=== PATIENT | female | born 1965 | race Caucasian/White ===

== ENCOUNTER 2018-02-16 08:03 | Outpatient (CLI) | payer OTHER ==
--- NOTE | 2018-02-17 12:24 | Mammography Report ---
Reason: SCREENING MAMMOGRAPHY, BILATERAL Procedure Date: 02/16/2018 Accession Number: [id number] / [id number] Procedure: KATE - Screening Mammo Dig Bilat CPT Code: FULL RESULT: EXAM: Screening Mammo Dig Bilat DATE: 02/16/2018 8:43 AM CLINICAL HISTORY: Routine screening TECHNIQUE: Bilateral CC and MLO views were obtained. COMPARISON: 07/20/2012 and 12/27/2007 FINDINGS: The breast tissue is heterogeneously dense. There has been no significant interval change. No suspicious masses, clustered microcalcifications, or regions of architectural distortion are identified. IMPRESSION: Negative. RECOMMENDATION: Routine annual screening unless otherwise clinically indicated. BIRADS CATEGORY 1: Negative STANDARD QUALIFYING STATEMENTS: 1. This examination was reviewed with the aid of Computer-Aided Detection (CAD). 2. A negative or benign imaging report should not delay biopsy if clinically suspicious findings are present. Consider surgical consultation if warrented. More than 5% of cancers are not identified by imaging. 3. Dense breasts may obscure an underlying neoplasm.
== END 2018-02-16 08:04 | disposition home or self-care (01) ==
LOC: DI 08:03
PROVIDERS: ATTEND Registered Nurse
DX: Z12.31 Encounter for screening mammogram for malignant neoplasm of breast (principal)
CPT/HCPCS: 77067

== ENCOUNTER 2018-02-16 08:44 | Outpatient (CLI) | payer OTHER ==
[2018-02-16 09:32] LABS: CHOLESTEROL 238 mg/dL; GLUCOSE 96 mg/dL (70-100); HDL CHOLESTEROL 79 mg/dL; LDL CHOLESTEROL,CALCULATED 147 mg/dL; LDL/HDL RATIO 1.9 (<4.4); VLDL CHOLESTEROL 12 mg/dL
[2018-02-16 09:37] LABS: HB2 TOTAL 14.4 g/dL; HEMOGLOBIN A1C 0.56 g/dL; HEMOGLOBIN A1C % 5.7 % (4.6-6.2)
== END 2018-02-16 08:45 | disposition home or self-care (01) ==
LOC: LAB 08:44
PROVIDERS: ATTEND Registered Nurse
DX: Z01.419 Encounter for gynecological examination (general) (routine) without abnormal findings (principal)
CPT/HCPCS: 36415; 80061; 82947; 83036; 83721; 84443

== ENCOUNTER 2018-05-23 08:43 | Day surgery (SDC) | payer OTHER ==
[2018-05-23] MEDS ORDERED: LACTATED RINGERS 1,000 ML IV ONE (09:05)
[2018-05-23] MEDS ORDERED: fentaNYL 250 MCG/5 ML VIAL IVP ONE (09:10)
[2018-05-23 10:16] VITALS: BP 103/68
== END 2018-05-23 08:44 | disposition home or self-care (01) ==
LOC: SDS 08:43
PROVIDERS: ATTEND Surgery
PROC: 0DJD8ZZ Inspection of Lower Intestinal Tract, Via Natural or Artificial Opening Endoscopic (ICD-10-PCS; principal; 2018-05-23 09:45)
DX: Z86.010 Personal history of colon polyps (principal); K64.8 Other hemorrhoids
CPT/HCPCS: 45378; J3010; J7120

== ENCOUNTER 2019-11-27 18:41 | Outpatient (CLI) | payer BC | END 2019-11-27 18:42 | disposition critical access hospital (66) | LOC: EMS 18:41 | PROVIDERS: ATTEND Surgery | DX: M54.5 Low back pain (principal); X58.XXXA Exposure to other specified factors, initial encounter; Y93.17 Activity, water skiing and wake boarding; Y92.832 Beach as the place of occurrence of the external cause | CPT/HCPCS: A0425; A0429 ==

== ENCOUNTER 2019-11-27 19:15 | Emergency (ER) | payer BC, OTHER ==
[2019-11-27] MEDS ORDERED: KETOROLAC 30 MG/ML VIAL IVP STA (19:22)
[2019-11-27] MEDS ORDERED: LORazepam 2 MG/ML VIAL IVP STA (19:22)
--- NOTE | 2019-11-27 19:24 | ED Physician Documentation ---
PD HPI BACK PAIN - Stated complaint Stated Complaint: LOW BACK INJURY - Chief complaint Chief Complaint: Back Pain - History obtained from History obtained from: Patient - Additional information Additional information: Otherwise healthy 54-year-old woman was waterskiing today, the but was just starting to pull her up and she developed severe pain in the low back. There was no specific trauma though. Pain is severe with motion, moderate at rest. It is nonradiating. Denies weakness, numbness, tingling, saddle anesthesia, fevers. No history of back issues. Review of Systems Ten Systems: 10 systems reviewed and negative Constitutional: reports: Reviewed and negative Nose: reports: Reviewed and negative Throat: reports: Reviewed and negative Cardiac: reports: Reviewed and negative Respiratory: reports: Reviewed and negative PD PAST MEDICAL HISTORY - Past Medical History Cardiovascular: None Respiratory: None Endocrine/Autoimmune: None GI: None : None HEENT: Chronic vision loss Psych: None Musculoskeletal: None Derm: None - Present Medications Home Medications: Ambulatory Orders Medication Instructions Recorded Confirmed Vit B2/Niacin/B6/B12/Dexpanth [B 1 DAILY 05/23/18 Complex Sublingual Liquid] Cyclobenzaprine [Flexeril] 10 mg PO TID PRN #20 tablet 11/27/19 Oxycodone HCl/Acetaminophen 1 - 2 each PO Q6H PRN #14 tablet 11/27/19 [Percocet 5-325 mg Tablet] - Allergies Allergies/Adverse Reactions: Allergies Allergy/AdvReac Type Severity Reaction Status Date / Time No Known Drug Allergies Allergy Verified 05/23/18 09:04 PD ED PE NORMAL - Vitals Vital signs reviewed: Yes - General General: Alert and oriented X 3, No acute distress - HEENT HEENT: PERRL, EOMI - Neck Neck: Supple, no meningeal sign, No bony TTP - Abdomen Abdomen: Soft, Non tender - Back Back: Other (She has muscular tenderness of the lower lumbar spine to either side, not in the middle.) - Extremities Extremities: Other (The patient has equal and normal Achilles and patellar reflexes bilaterally. Normal sensation in all areas of the legs. Patient denies saddle anesthesia. Normal strength in flexion-extension at the ankles, knees, and flexion of the hips.) - Neuro Neuro: Alert and oriented X 3, Normal speech Results - Vitals Vitals: Vital Signs - 24 hr 11/27/19 11/27/1911/26/20 19:17 19:25 21:30 Temperature 36.8 C Heart Rate 60 56 L 60 Respiratory 16 16 14 Rate Blood Pressure 132/86 H 132/86 H 115/76 O2 Saturation 100 100 100 Oxygen O2 Source Room air PD MEDICAL DECISION MAKING - ED course ED course: This is an otherwise healthy 54-year-old woman who developed a lumbar strain while waterskiing today. She was treated with medication stepwise and eventually recovered enough to be mobile which was the main problem at the beginning other than the severe pain. The mechanism of injury does not Suggest the need for any imaging. Departure - Departure Disposition: Home, Self Care Clinical Impression: Acute lumbar myofascial strain Qualifiers: Encounter type: initial encounter Qualified Code(s): S39.012A - Strain of muscle, fascia and tendon of lower back, initial encounter Condition: Good Record reviewed to determine appropriate education?: Yes Instructions: ED Sprain Strain Lumbar Prescriptions: Cyclobenzaprine [Flexeril] 10 mg PO TID PRN #20 tablet PRN Reason: Spasms Oxycodone HCl/Acetaminophen [Percocet 5-325 mg Tablet] 1 - 2 each PO Q6H PRN #14 tablet PRN Reason: pain Comments: Along with the prescription pain medication and muscle relaxer you can also take kxke-gwx-xgoegca ibuprofen. You should generally rest but not be on complete bedrest. Gentle stretching and activity is fine. Heat will help to. Return if worse. If symptoms are persistent, follow-up with your doctor and discuss physical therapy as well. Do not drink or drive while taking narcotic pain medication. Note that many narcotic pain relievers also contain Tylenol/acetaminophen. Please ensure that your total dose of acetaminophen from all sources does not exceed 3 g (3000 mg) per day. You may get constipated while on this medication. Take a stool softener such as Colace twice a day while you are on it. Also add an dsen-kii-rpkopzh laxative such as senna or MiraLAX on any day that you do not have a bowel movement. If you received a narcotic pain medication or sedative while in the emergency department, do not drive for the next 24 hours.
[2019-11-27] MEDS ORDERED: HYDROmorphone 1 MG/ML CARPUJECT IVP STA ×2 (20:18→21:04)
[2019-11-27] MEDS ORDERED: oxyCODONE/ACET 5/325 Prepack 4 PO STA (21:56)
[2019-11-27] MEDS ORDERED: ONDANSETRON 4 MG/2 ML VIAL IVP STA (22:08)
[2019-11-27 22:59] VITALS: BP 116/74
== END 2019-11-27 22:58 | disposition home or self-care (01) ==
LOC: EDUNIT# → ED 19:15
DX: S39.012A Strain of muscle, fascia and tendon of lower back, initial encounter (principal); X58.XXXA Exposure to other specified factors, initial encounter; Y93.17 Activity, water skiing and wake boarding; Y92.89 Other specified places as the place of occurrence of the external cause
CPT/HCPCS: 96374; 96375; 96376; 99284; 99285; J1170; J2060

== ENCOUNTER 2020-07-11 08:00 | Outpatient (CLI) | payer BC | END 2020-07-11 23:59 | disposition home or self-care (01) | LOC: LAB.S 08:00 | PROVIDERS: ATTEND Physician Assistant | DX: R19.7 Diarrhea, unspecified (principal) | CPT/HCPCS: 81599; 87045; 87046; 87177; 87209; 87329; 87427 ==

== ENCOUNTER 2022-02-26 08:53 | Outpatient (CLI) | payer BC ==
--- NOTE | 2022-03-06 12:46 | Mammography Report ---
BILATERAL DIGITAL SCREENING MAMMOGRAM 3D/2D: 02/26/2022 CLINICAL: Routine screening. Comparison is made to exams dated: 02/16/2018 mammogram - [facility] and 07/20/2012 mammogram - [facility]. Both breasts are heterogeneously dense, which may obscure small masses (category c / 51-75% glandular tissue). No significant masses, calcifications, or other findings are seen in either breast. There has been no significant interval change. IMPRESSION: NEGATIVE There is no mammographic evidence of malignancy. A 1 year screening mammogram is recommended. Based on the Tyrer Cuzick model (a risk assessment model) the patients lifetime risk is 12.3% and he r 10 year risk is 4.0%. According to the ACR, ACS, and NCCN guidelines, an annual breast MRI exam mandy ng with mammogram is recommended if the patients lifetime risk is 20% or greater. This exam was interpreted at Station ID: [id number]. NOTE: For mammograms, a report in lay terms will be sent to the patient. Approximately 15% of breast malignancies will not be visualized mammographically. In the management of a palpable breast mass, a negative mammogram must not discourage biopsy of a clinically suspicious lesion. Electronically Signed By: Todd [email or web address]:03/06/2022 11:37:15 ACR BI-RADS Category 1: Negative 3341F PARENCHYMAL PATTERN: (D) - The breast(s) demonstrate(s) heterogeneously dense fibroglandular zeeshan lopez. BI-RADS CATEGORY: (1) - 1 RECOMMENDATION: (ANNUAL) - Recommend routine annual screening mammography. [id number] 1 year screening LATERALITY: (B)
== END 2022-02-26 08:54 | disposition home or self-care (01) ==
LOC: DI 08:53
PROVIDERS: ATTEND Nurse Practitioner
DX: Z12.31 Encounter for screening mammogram for malignant neoplasm of breast (principal)

== ENCOUNTER 2022-04-03 08:23 | Outpatient (CLI) | payer BC ==
--- NOTE | 2022-04-03 10:42 | DEXA Report ---
PROCEDURE: Dexa Spine and/or Hip INDICATIONS: LOW BONE DENSITY FOR AGE TECHNIQUE: Dual energy x-ray absorptiometry (DXA) was performed on a DAXKO System. Regions measur ed are the AP Spine, femoral neck, and if needed forearm. COMPARISON: None. FINDINGS: Lumbar Spine: Bone Mineral Density 0.832 g/cm/cm,T score -2.9, osteoporosis. Left Femoral Neck: Bone Mineral Density 0.850 g/cm/cm, T score -1.3, osteopenia. Left Hip: Bone Mineral Density 0.892 g/cm/cm,T score -0.9, normal (T score greater or equal to -1.0: NORMAL) (T score from -1.1 to -2.4: OSTEOPENIA) (T score less than or equal to -2.5 to: OSTEOPOROSIS) Impression: Based on WHO criteria, the patient has osteoporosis. Patients with diagnosis of osteoporosis or osteopenia should have regular bone mineral density assess ment. For those eligible for Medicare, routine testing is allowed once every 2 years. Testing frequ ency can be increased for patients who have rapidly progressing disease or for those who are receivin g medical therapy to restore bone mass. Reviewed by: Dragan Phelan MD on 04/03/2022 10:40 AM PST Approved by: Dragan Phelan MD on 04/03/2022 10:40 AM PST Station ID: [id number]
== END 2022-04-03 08:24 | disposition home or self-care (01) ==
LOC: DI 08:23
PROVIDERS: ATTEND Nurse Practitioner
DX: M81.0 Age-related osteoporosis without current pathological fracture (principal)

== ENCOUNTER 2023-07-06 08:57 | Outpatient (CLI) | payer OTHER ==
[2023-07-06 15:06] LABS: HCT - HEMATOCRIT 42.1 % (37.0-47.0); HGB - HEMOGLOBIN 13.4 g/dL (12.0-16.0); MEAN CORPUSCULAR HEMOGLOBIN 30.8 pg (27.0-31.0); MEAN CORPUSCULAR HGB CONC 31.8 g/dL (32.0-36.0); MEAN CORPUSCULAR VOLUME 96.8 fL (81.0-99.0); MEAN PLATELET VOLUME 11.2 fL (7.9-10.8); RED BLOOD COUNT 4.35 10^6/uL (4.20-5.40); RED CELL DISTRIBUTION WIDTH 12.3 % (12.0-15.0); WHITE BLOOD COUNT 4.8 x10^3/uL (4.8-10.8)
[2023-07-06 15:51] LABS: ALBUMIN 4.2 g/dL (3.2-5.5); ALBUMIN/GLOBULIN RATIO 1.8 (1.0-2.2); ALKALINE PHOSPHATASE 55 IU/L (42-121); ALT ALANINE AMINOTRANSFERASE 12 IU/L (10-60); AST ASPARTATE AMINOTRANSFERASE 14 IU/L (10-42); BILIRUBIN,TOTAL 0.5 mg/dL (0.2-1.0); BUN - BLOOD UREA NITROGEN 11 mg/dL (6-20); CALCIUM 9.4 mg/dL (8.5-10.3); CARBON DIOXIDE - CO2 31 mmol/L (21-32); CHLORIDE 106 mmol/L (101-111); CHOL/HDL RATIO 3.5 (<4.4); CHOLESTEROL 221 mg/dL; CREATININE 0.6 mg/dL (0.6-1.3); CRP - C-REACTIVE PROTEIN < 0.5 mg/dL (<0.5); GFR - MDRD 103 (>89); GLUCOSE 87 mg/dL (74-104); HDL CHOLESTEROL 63 mg/dL; LDL CHOLESTEROL,CALCULATED 141 mg/dL; LDL/HDL RATIO 2.2 (<4.4); POTASSIUM 4.1 mmol/L (3.5-4.5); SODIUM 140 mmol/L (135-145); TOTAL PROTEIN 6.6 g/dL (6.4-8.9); TRIGLYCERIDES 84 mg/dL (48-352); VLDL CHOLESTEROL 17 mg/dL
[2023-07-06 15:59] LABS: THYROID STIMULATING HORMONE 2.98 uIU/mL (0.34-5.60)
== END 2023-07-06 08:58 | disposition home or self-care (01) ==
LOC: LAB.S 08:57
PROVIDERS: ATTEND Nurse Practitioner
DX: E78.5 Hyperlipidemia, unspecified (principal); Z13.21 Encounter for screening for nutritional disorder; M85.80 Other specified disorders of bone density and structure, unspecified site; Z13.29 Encounter for screening for other suspected endocrine disorder; Z13.0 Encounter for screening for diseases of the blood and blood-forming organs and certain disorders involving the immune mechanism
CPT/HCPCS: 36415; 80053; 80061; 82306; 83721; 84443; 85027; 85651; 86140